=== PATIENT | male | born 1985 | race Caucasian/White ===

== ENCOUNTER 2022-03-25 01:23 | Emergency (ER) | payer OTHER ==
[~2022-03-25 01:23] MED LIST: IBU800 MG PO; PERCOCET 10-321 EACH PO
== END 2022-03-25 03:51 | disposition left against medical advice (07) ==
LOC: ER1 01:23
DX: Z53.21 Procedure and treatment not carried out due to patient leaving prior to being seen by health care provider (principal)
CPT/HCPCS: 93005